=== PATIENT | female | born 1995 | race Two or more races ===

== ENCOUNTER 2019-07-01 00:25 | Emergency (ER) | payer SELFPAY ==
[2019-07-01 00:37] VITALS: BP 107/58
[2019-07-01] MEDS ORDERED: FAMOTIDINE 20 MG TABLET PO ONE (02:35)
[2019-07-01] MEDS ORDERED: PREDNISONE 20 MG TABLET PO ONE (02:35)
[2019-07-01] MEDS ORDERED: DIPHENHYDRAMINE HCL 25 MG CAPSULE PO ONE (02:35)
--- NOTE | 2019-07-01 02:39 | ER Document Report ---
HPI - HPI Time Seen by Provider: 07/01/19 02:29 Pain Level: 0 Context: Patient is a 24-year-old female that comes emergency department for chief complaint of allergic reaction. She states that she woke up tonight, she was itching over her hand on the right side, her arms, her neck, her face. She states her eyelids also started getting puffy. She denies difficulty swallowing or breathing, nausea or vomiting, abdominal cramping. She denies any other complaints. She states that after arrival to the emergency department she actually started to improve, she states her rash around her mouth and on her neck has significantly faded. She denies any other complaints. She denies history of the same. She denies . She denies any daily medications. Past Medical History - General Information source: Patient - Social History Smoking Status: Current Every Day Smoker Frequency of alcohol use: Occasional Drug Abuse: None Lives with: Family Family History: Reviewed & Not Pertinent Patient has suicidal ideation: No Patient has homicidal ideation: No - Medical History Medical History: Negative Surgical Hx: Negative - Immunizations Immunizations up to date: Yes Hx Diphtheria, Pertussis, Tetanus Vaccination: Yes Vertical Provider Document - CONSTITUTIONAL General Appearance: WD/WN, No Apparent Distress - INFECTION CONTROL TRAVEL OUTSIDE OF THE [place] IN LAST 30 DAYS: No - HEENT HEENT: Atraumatic, Normocephalic. negative: Normal ENT Exam - There is a faint puffiness to both upper eyelids but there is no significant swelling. Lower eyelids unremarkable, eyes are not injected, oral pharyngeal exam is normal with normal tongue, patent airway, normal uvula. Normal ENT exam otherwise. - NECK Neck: Normal Inspection - RESPIRATORY Respiratory: Breath Sounds Normal, No Respiratory Distress. negative: Wheezing - CARDIOVASCULAR Cardiovascular: Regular Rate, Regular Rhythm. negative: Tachycardia - GI/ABDOMEN Gastrointestinal: Abdomen Soft, Abdomen Non-Tender. negative: Abdomen Tender - BACK Back: Normal Inspection - MUSCULOSKELETAL/EXTREMETIES Musculoskeletal/Extremeties: MAEW, FROM, Non-Tender - NEURO Level of Consciousness: Awake, Alert Motor/Sensory: No Motor Deficit, No Sensory Deficit - DERM Integumentary: Warm, Dry, Rash - Faint scattered erythema over the back of the neck, over the right hand and wrist, and very faintly over both zygomatic areas of the face. Minimally over the forehead. No significant wheals, no concerning findings otherwise. Course - Re-evaluation Re-evalutation: Patient with a scattered erythematous rash which does appear to be fading, patient states she is much better. She does have slightly puffy eyelids but her ENT exam is completely unremarkable otherwise. Patient does not have evidence of anaphylaxis or airway compromise. Because her symptoms are significantly improving patient will be medicated, discharged with medications, and given specific instructions for follow-up and return precautions. Discussed this at length with patient. Patient states understanding and agreement. Stable at time of discharge. - Vital Signs Vital signs: Temp Pulse Resp BP Pulse Ox 97.9 F 71 20 107/58 L 100 07/01/19 00:36 07/01/19 00:36 07/01/19 00:36 07/01/19 00:36 07/01/19 00:36 Discharge - Discharge Clinical Impression: Rash Allergic reaction Qualifiers: Encounter type: initial encounter Qualified Code(s): T78.40XA - Allergy, unspecified, initial encounter Condition: Stable Disposition: HOME, SELF-CARE Additional Instructions: Your evaluation is consistent with an allergic reaction. Unfortunately the cause of this is uncertain at this time. Take the prednisone as prescribed to completion, take the cetirizine and famotidine for 1 week. Follow-up with primary care. If this continues to happen consider allergy testing. Return immediately if you worsen including worsening rash, swelling of the face/tongue/throat, difficulty swallowing or breathing, or any other concerning symptoms. Prescriptions: Cetirizine HCl [24Hour Allergy] 10 mg PO DAILY #30 tablet Prednisone [Deltasone 10 mg Tablet] 10 mg PO ASDIR #15 tablet Famotidine [Pepcid 20 mg Tablet] 20 mg PO BID #14 tablet
== END 2019-07-01 02:45 | disposition home or self-care (01) ==
LOC: ER 00:25
DX: T78.40XA Allergy, unspecified, initial encounter (principal); R21 Rash and other nonspecific skin eruption; L29.9 Pruritus, unspecified; X58.XXXA Exposure to other specified factors, initial encounter; F17.200 Nicotine dependence, unspecified, uncomplicated
CPT/HCPCS: 99283; J7512